=== PATIENT | male | born 1980 | race Caucasian/White ===

== ENCOUNTER 2021-09-13 16:56 | Emergency (ER) | payer OTHER ==
[~2021-09-13] VITALS: Ht 188 cm; Wt 89.8 kg
== END 2021-09-13 18:51 | disposition home or self-care (01) ==
LOC: ED 16:56
DX: I83.91 Asymptomatic varicose veins of right lower extremity (principal)
CPT/HCPCS: 93971; 99283-25

== ENCOUNTER 2022-03-14 10:48 | Emergency (ER) | payer OTHER ==
[2022-03-14] MEDS ORDERED: HYDROCODON-ACE1 EA11 PO (13:48)
== END 2022-03-14 14:41 | disposition home or self-care (01) ==
LOC: ED 10:48
DX: S12.400A Unspecified displaced fracture of fifth cervical vertebra, initial encounter for closed fracture (principal); S01.81XA Laceration without foreign body of other part of head, initial encounter; S80.12XA Contusion of left lower leg, initial encounter; S80.11XA Contusion of right lower leg, initial encounter; V49.9XXA Car occupant (driver) (passenger) injured in unspecified traffic accident, initial encounter
CPT/HCPCS: 12013; 36415; 70450; 70486; 71045; 72125; 73060; 73590; 80053; 83605; 85025; 99284-25; A9270; G0480; J1885

== ENCOUNTER 2023-08-28 08:24 | Emergency (ER) | payer OTHER ==
[~2023-08-28] VITALS: Ht 188 cm; Wt 90.8 kg
[~2023-08-28 08:24] MED LIST: HYDROCODON-ACE1 EA11 PO
[2023-08-28] MEDS ORDERED: NAPROSYN500 MG PO (08:44)
[2023-08-28 08:52] VITALS: BP 122/81
== END 2023-08-28 08:53 | disposition home or self-care (01) ==
LOC: ED 08:24
DX: S16.1XXA Strain of muscle, fascia and tendon at neck level, initial encounter (principal); V43.53XA Car driver injured in collision with pick-up truck in traffic accident, initial encounter
CPT/HCPCS: 99283